=== PATIENT | female | born 1995 | race Caucasian/White ===

== ENCOUNTER → 2021-11-17 | Outpatient (CLI) | payer BC ==
--- NOTE | 2021-11-17 14:40 | Diagnostic Imaging Report ---
INDICATION: survey. TECHNIQUE: Multiple real-time grayscale images were obtained over the gravid uterus. COMPARISON: None. FINDINGS: There are no prior studies available for comparison. There is a single live fetus in viable presentation. heart motion was noted, and a rate of 146 BPM was recorded. There were no abnormalities identified. The growth parameters are fairly uniform. The placenta is anterior, and there is no previa. The amniotic fluid volume is within normal limits. The cervix was identified and measures 6.1 cm in length. Biometrical measurements are as follows: Biparietal 4.66 cm, age 20 weeks 1 days. Head circumference 17.79 cm, age 20 weeks 1 days. Abdominal circumference 15.21 cm, age 20 weeks 3 days. Femur length 3.19 cm, age 20 weeks 0 days. Sonographic estimate age: 20 weeks 2 days. Sonographic estimated date of delivery: 04/04/2022. Estimated Weight: 338 gm (+/- 50 gm). LMP percentile: 57%. heart rate: 146 beats per minute. number: 1 of 1. IMPRESSION: 1. There is a single live fetus of approximately 20 weeks 2 days gestation, +/- 1.5 weeks. The EDC is 04/04/2022. 2. There were no abnormalities identified. 3. The growth parameters are fairly uniform. Dictated by: Dictated on workstation # [id number]
== END ==
LOC: RAD 11:57
PROVIDERS: ATTEND Obstetrics & Gynecology
DX: Z34.02 Encounter for supervision of normal first pregnancy, second trimester (principal)
CPT/HCPCS: 76805

== ENCOUNTER 2022-03-23 22:54 | Inpatient (IN) | payer BC ==
[~2022-03-23] VITALS: Ht 165.1 cm; Wt 85.1 kg
[2022-03-23 23:14] VITALS: BP 143/91
[2022-03-23 23:39] VITALS: BP 122/72
[2022-03-23] MEDS ORDERED: PNV11TAB5 PO (23:46)
[2022-03-23] MEDS ORDERED: IRON18TA PO (23:48)
[2022-03-23] MEDS ORDERED: FAMO-119 PO (23:48)
[2022-03-23] MEDS ORDERED: DOCU100T7 PO (23:48)
[2022-03-23 23:54] VITALS: BP 132/74
[2022-03-24] VITALS (44 sets, daily range): BP systolic 112–152; BP diastolic 65–97
[2022-03-24 01:49] LABS: BILIRUBIN,URINE NEGATIVE (NEGATIVE); CLARITY,URINE CLEAR; COLOR,URINE YELLOW; GLUCOSE, URINE (UA) NEGATIVE (NEGATIVE); KETONES,URINE NEGATIVE (NEGATIVE); LEUKOCYTE ESTERASE ,URINE 2+ (NEGATIVE); NITRITE,URINE NEGATIVE (NEGATIVE); PROTEIN,URINE NEGATIVE (NEGATIVE)
[2022-03-24 02:03] LABS: BACTERIA,URINE MODERATE /HPF
--- NOTE | 2022-03-24 05:39 | History & Physical-OB ---
OB - Chief Complaint & HPI Date/Time Date of Admission: Date of Admission: Mar 24, 2022 at 00:37 Date seen by a Provider: Mar 24, 2022 Time Seen by a Provider: 05:45 Chief Complaint/History OB-Reason for Admission/Chief: Obstetrical Complication Hx : 4 Hx Para: 2 Expected Date of Delivery: Apr 06, 2022 Gestational Age in Weeks: 38 Gestational Age in Days: 1 Other reason for admission: Patient came in last night for contractions and had made change from office exam. However, BP in office was slightly elevated and patient had been c/o BOOTHE for the past 2 days. Upon arrival here, BP has been labile and monitored overnight with occasional elevated BP. Due to GHTN and concerns for underlying PreE with BOOTHE features patient kept for augmentation of labor at 38 weeks. Admission Nurse Assessment Rev: Yes Allergies and Home Medications Allergies Coded Allergies: No Known Drug Allergies (Unverified , 03/23/22) Patient Home Medication List Home Medication List Reviewed: Yes Docusate Sodium (Stool Softener) Unknown Strength Tablet, Unknown Dose PO DAILY, (Reported) Entered as Reported by: JOSEFINA MACIAS on 03/23/222347 Last Action: New Order Famotidine (Pepcid) Unknown Strength Tablet, Unknown Dose PO DAILY, (Reported) Entered as Reported by: JOSEFINA MACIAS on 03/23/222347 Last Action: New Order Iron (Iron) 18 Mg Tablet, 18 MG PO DAILY, (Reported) Entered as Reported by: JOSEFINA MACIAS on 03/23/222347 Last Action: New Order Qdf195/FA/Omega3/Dha/Fish Oil ( Gummies) 400 Mcg-32.5 Mg (25 Mg-7.5 Mg) Tab.chew, 1 EACH PO DAILY, (Reported) Entered as Reported by: JOSEFINA MACIAS on 03/23/222345 Last Action: New Order OB - History Hx of Present Care: Yes Ultrasounds: Normal mid trimester US Obstetrical Complications: Gestational Hypertension Medical Complications: None Obstetrical History Hx : 3 Hx Para: 2 Hx Total # of Abortions (Spona: 0 Patient Past Medical History n/a Social History/Family History Alcohol Use: Denies Use Recreational Drug Use: No 2nd Hand Smoke Exposure: No OB - Admission Exam Physical Exam Vitals: Vital Signs 03/24/22 04:45 Pulse 79 B/P (MAP) 125/78 (94) HEENT: NCAT Heart: Rhythm Normal Lungs: Clear Abdomen: Gravid Extremities: Normal Reflexes: Normal Cervical Dilatation: 4cm Effacement: 75% Station: -1 Membranes: Intact Heart Rate: 130's Accelerations: Accelerations Present Decelerations: No Decelerations Short Term Variability: Present Snf Variability: Average (6-25) Contractions on Admission: 6-10 Minutes Apart Intensity: Mild Labs Laboratory Tests Test 03/23/22 23:15 Range/Units Urine Color YELLOW Urine Clarity CLEAR Urine pH 7.0 5-9 Urine Specific [place] 1.015 L 1.016-1.022 Urine Protein NEGATIVE NEGATIVE Urine Glucose (UA) NEGATIVE NEGATIVE Urine Ketones NEGATIVE NEGATIVE Urine Nitrite NEGATIVE NEGATIVE Urine Bilirubin NEGATIVE NEGATIVE Urine Urobilinogen 0.2 < = 1.0 MG/DL Urine Leukocyte Esterase 2+ H NEGATIVE Urine RBC (Auto) NEGATIVE NEGATIVE Urine RBC NONE /HPF Urine WBC 10-25 H /HPF Urine Squamous Epithelial Cells 5-10 /HPF Urine Crystals NONE /LPF Urine Bacteria MODERATE H /HPF Urine Casts NONE /LPF Urine Mucus NEGATIVE /LPF Urine Culture Indicated YES OB - Assessment/Plan/Diagnosis Assessment Admission Dx 26 yo @ 38.1 Active labor GHTN GBS neg Admission Status: Inpatient Order (span 2 midnights) Reason for Inpatient Admission: 38 week labor Plan Plan: Other (Augmentation of labor) Induction Method: SARY WAY DO Mar 24, 2022 05:39
[2022-03-24] MEDS ORDERED: D5 LR IV SOLUTION 1,000 ML IV ONE (05:45)
[2022-03-24 06:13] LABS: BASOPHILS # (AUTO) 0.1 10^3/uL (0.0-0.1); BASOPHILS % (AUTO) 1 % (0-10); EOSINOPHILS # (AUTO) 0.1 10^3/uL (0.0-0.3); EOSINOPHILS % (AUTO) 1 % (0-10); HEMATOCRIT 35 % (35-52); HEMOGLOBIN 12.2 g/dL (11.5-16.0); LYMPHOCYTES # (AUTO) 1.8 10^3/uL (1.0-4.0); LYMPHOCYTES % (AUTO) 17 % (12-44); MEAN CORPUSCULAR HEMOGLOBIN 30 pg (25-34); MEAN CORPUSCULAR HGB CONC 35 g/dL (32-36); MEAN CORPUSCULAR VOLUME 86 fL (80-99); MEAN PLATELET VOLUME 11.2 fL (9.0-12.2); MONOCYTES # (AUTO) 1.2 10^3/uL (0.0-1.0); MONOCYTES % (AUTO) 11 % (0-12); NEUTROPHILS # (AUTO) 7.6 10^3/uL (1.8-7.8); NEUTROPHILS % (AUTO) 70 % (42-75); PLATELET COUNT 227 10^3/uL (130-400); WHITE BLOOD COUNT 10.9 10^3/uL (4.3-11.0)
[2022-03-24] MEDS ORDERED: D5 LR IV SOLUTION 1,000 ML IV SCH (06:15)
[2022-03-24] MEDS ORDERED: fentaNYL 2 mcg/ml BUPIVA 0.125 100 ML ONE (08:06)
[2022-03-24] MEDS ORDERED: fentaNYL INJ 100 MCG/2 ML AMP ONE (09:14)
[2022-03-24] MEDS ORDERED: BUPIVACAINE 0.25% 30 ML (SENSORCAINE) VIAL ONE (09:14)
[2022-03-24] MEDS ORDERED: OXYTOCIN PRE-MIX DRIP 500 ML IV SCH (10:30)
[2022-03-24] MEDS ORDERED: OXYTOCIN PRE-MIX DRIP 500 ML IV ONE (10:45)
[2022-03-24] MEDS ORDERED: LACTATED RINGERS 1,000 ML IV ONE (11:00)
[2022-03-24] MEDS ORDERED: fentaNYL 2 mcg/ml BUPIVA 0.125 100 ML IV SCH (11:00)
[2022-03-24] MEDS ORDERED: ONDANSETRON 4 MG/2 ML (SDV) Z0FRAN IV PRN (11:00)
[2022-03-24] MEDS ORDERED: NALOXONE 0.4 MG/ML 1 ML (NARCAN) VIAL IV PRN ×2 (11:00→13:45)
[2022-03-24] MEDS ORDERED: diphenhydrAMINE 50 MG/ML INJ (BENADRYL) IV PRN (11:00)
[2022-03-24] MEDS ORDERED: CATHETER FLUSH 10 ML SYR IV PRN (11:00)
[2022-03-24] MEDS: OXYTOCIN PRE-MIX DRIP 500 ML IV SCH ×2 (13:15→14:02)
[2022-03-24] MEDS ORDERED: WITCH HAZEL(TUCKS) 40 EA JAR TOP PRN (13:45)
[2022-03-24] MEDS ORDERED: MEASLES,MUMPS,RUBELLA 1 EA INJ SQ ONE (13:45)
[2022-03-24] MEDS ORDERED: TETANUS,DIPTH,PERTUSS P/F (BOOSTRIX) 0.5 ML VIAL IM ONE (13:45)
[2022-03-24] MEDS ORDERED: HYDROcodone/APAP 5 MG/325 MG (LORTAB) TAB PO PRN (13:45)
[2022-03-24] MEDS ORDERED: DIBUCAINE 1% OINTMENT 30 GM TUBE TOP PRN (13:45)
[2022-03-24] MEDS ORDERED: BENZOCAINE/MENTHOL (DERMOPLAST) 56 ML CAN TP PRN (13:45)
--- NOTE | 2022-03-24 13:51 | OB Labor & Delivery Record ---
L&D History Date of Service Date of Service: Mar 24, 2022 History Expected Date of Delivery: Apr 06, 2022 Gestational Age in Weeks: 38 Hx : 4 Hx Para: 2 Complications Events: Induced HTN, Routine care Operative Indications (Cesarea: N/A-Vaginal Delivery Intrapartal Events: None L&D Stage1 Stage One Onset of Labor - Date: Mar 24, 2022 Monitors and Tracing Monitor Mode: External Heart Rate: 125 Monitor Decelerations: None Station: 0 Vital Signs VS - Last 72 Hours, by Label 03/23/22 03/23/22 03/23/22 03/23/22 23:14 23:14 23:14 23:39 Temp 37.0 36.7 Pulse 89 89 89 79 Resp 18 18 B/P (MAP) 143/91 (108) 122/72 (89) Pulse Ox 97 97 97 O2 Delivery Room Air Room Air Room Air 03/23/22 03/24/22 03/24/22 03/24/22 23:54 01:15 02:15 03:15 Pulse 78 69 64 69 B/P (MAP) 132/74 (93) 128/74 (92) 120/73 (89) 132/84 (100) 03/24/22 03/24/22 03/24/22 03/24/22 04:45 07:30 07:38 08:00 Temp 36.3 36.7 Pulse 79 79 77 Resp 18 18 B/P (MAP) 125/78 (94) 130/80 (97) Pulse Ox 97 O2 Delivery Room Air Room Air 03/24/22 03/24/22 03/24/22 03/24/22 08:15 08:30 08:50 09:00 Pulse 62 75 Resp 18 18 18 18 B/P (MAP) 133/87 (102) 128/89 (102) O2 Delivery Room Air Room Air Room Air Room Air 03/24/22 03/24/22 03/24/22 03/24/22 09:15 09:21 09:26 09:30 Pulse 92 72 76 76 Resp 18 18 18 18 B/P (MAP) 133/91 (105) 131/90 (104) 152/93 (112) 137/92 (107) Pulse Ox 100 100 99 O2 Delivery Room Air Room Air Room Air Room Air 03/24/22 03/24/22 03/24/22 03/24/22 09:35 09:40 09:45 09:50 Pulse 88 71 63 72 Resp 18 18 18 18 B/P (MAP) 133/86 (102) 113/66 (82) 119/72 (88) 119/72 (88) Pulse Ox 96 98 98 99 O2 Delivery Room Air Room Air Room Air Room Air 03/24/22 03/24/22 03/24/22 03/24/22 09:55 10:00 10:05 10:15 Pulse 75 71 79 80 Resp 18 18 18 18 B/P (MAP) 119/77 (91) 121/74 (90) 122/78 (93) 128/77 (94) Pulse Ox 99 100 100 100 O2 Delivery Room Air Room Air Room Air Room Air 03/24/22 03/24/22 03/24/22 03/24/22 10:30 10:45 11:00 11:15 Pulse 67 71 72 67 Resp 18 18 18 18 B/P (MAP) 127/73 (91) 125/82 (96) 126/76 (93) 133/87 (102) Pulse Ox 100 100 100 100 O2 Delivery Room Air Room Air Room Air Room Air 03/24/22 03/24/22 03/24/22 11:30 11:45 12:00 Pulse 63 74 75 Resp 18 18 18 B/P (MAP) 128/78 (95) 132/84 (100) 136/84 (101) Pulse Ox 100 100 100 O2 Delivery Room Air Room Air Room Air Rupture of Membranes Spontaneous Ruture of Membrane: No Amniotic Membrane Rupture Time: 0554 Amniotic Membrane Fluid Desc.: Clear Vaginal Bleeding Description: Normal Show Induction/Anesthesia Epidural Cath Placement - Time: 09 Progress/Notes Patient came in for contractions making change from office exam earlier that day. Her BP was labile and decision was made to augment labor with AROM due to GHTN. AROM performed, followed by Pitocin augmentation and epidural placement. She progressed to complete and 0 station on max 4 mu pitocin. L&D Stage2 Stage Two Stage II Date: Mar 24, 2022 Monitors and Tracing Monitor Mode: External Heart Rate: 125 Monitor Accelerations: Uniform Monitor Decelerations: None Wood Flooring Specialist Variability: Average (6-10) Short Term Variability: Present Position: Right Occiput Anterior Presentation: Vertex Cord Descript/Complications Cord Vessel Description: 3 Vessels Complications nuchal cord reduced x 1 Delivery Type Infant Delivery Method: Spontaneous Vaginal Anterior Shoulder: Left Episiotomy/Perineal Laceration Laceraction(s)/Extensions: No Condition of Delivery 1 minute Comment: 8 5 minute Comment: 9 Notes live male infant weight pending. Condition of Condition of Infant: Living Exam: No Observed Abnormalities Resuscitation Resuscitation: N/A - Spontaneous Resp L&D Stage3 Stage Three Stage III Date: Mar 24, 2022 Pictocin Pitocin Administration mu/min: 4 Pitocin ml/hr: 4 Pitocin Administration Comment: pitocin increased wide open after delivery of placetna Placenta Delivery Placenta Delivery: Spontaneous Delivery Summary Summary Estimated blood loss (mL): 250 Attending at delivery: Sary Melgoza DO Condition of Delivery Examined: Cervix Examined, Uterus Explored Post Hemorrhage: No Condition of Mother stable Condition of Infant (s) stable SARY MELGOZA DO Mar 24, 2022 1:51 pm
[2022-03-24] MEDS ORDERED: CATHETER FLUSH 10 ML SYR IV SCH ×2 (14:00)
[2022-03-24] MEDS: IBUPROFEN 600 MG (MOTRIN) TAB PO SCH ×2 (16:18→22:22)
[2022-03-24] MEDS: DOCUSATE SODIUM 100 MG (COLACE) CAP PO SCH (22:22)
[2022-03-25] MEDS ORDERED: OXYTOCIN PRE-MIX DRIP 1,000 ML IV ONE (02:26)
[2022-03-25] MEDS ORDERED: NS IV 1000 ML 2,000 ML ONE (02:26)
[2022-03-25 05:27] VITALS: BP 131/83
[2022-03-25 05:38] LABS: BASOPHILS % (AUTO) 0 % (0-10); EOSINOPHILS # (AUTO) 0.1 10^3/uL (0.0-0.3); EOSINOPHILS % (AUTO) 1 % (0-10); HEMATOCRIT 32 % (35-52); HEMOGLOBIN 10.6 g/dL (11.5-16.0); LYMPHOCYTES # (AUTO) 2.3 10^3/uL (1.0-4.0); LYMPHOCYTES % (AUTO) 17 % (12-44); MEAN CORPUSCULAR HEMOGLOBIN 30 pg (25-34); MEAN CORPUSCULAR HGB CONC 34 g/dL (32-36); MEAN CORPUSCULAR VOLUME 89 fL (80-99); MEAN PLATELET VOLUME 11.1 fL (9.0-12.2); MONOCYTES # (AUTO) 1.2 10^3/uL (0.0-1.0); MONOCYTES % (AUTO) 9 % (0-12); NEUTROPHILS # (AUTO) 9.7 10^3/uL (1.8-7.8); NEUTROPHILS % (AUTO) 72 % (42-75); PLATELET COUNT 193 10^3/uL (130-400); WHITE BLOOD COUNT 13.5 10^3/uL (4.3-11.0)
[2022-03-25] MEDS ORDERED: PRENATAL VITAMIN 1 EA TAB PO SCH (07:00)
--- NOTE | 2022-03-25 07:22 | Anesthesia-Regional Post-Op ---
Regional Patient Condition Mental Status: Alert, Oriented x3 Circulation: Same as Pre-Op Headache: Absent Sensation: Full Recovery Motor Block: Absent Post Op Complications Complications None Follow Up Care/Instructions Patient Instructions None needed. Anesthesia/Patient Condition Patient is doing well, no complaints, stable vital signs, no apparent adverse anesthesia problems. No complications reported per nursing. D/C home per [facility] Criteria: Yes GISELA SPARKS CRNA Mar 25, 2022 07:22
[2022-03-25] MEDS: IBUPROFEN 600 MG (MOTRIN) TAB PO SCH ×3 (08:10→14:19)
[2022-03-25] MEDS ORDERED: FERROUS SULF 325 MG (IRON) TAB PO SCH (09:00)
[2022-03-25] MEDS: DOCUSATE SODIUM 100 MG (COLACE) CAP PO SCH (09:00)
[2022-03-25 09:03] VITALS: BP 143/95
--- NOTE | 2022-03-25 09:39 | Postpartum Progress Note ---
Note Note Day # 1 Subjective: Patient is without complaints. Ambulating, voiding. Tolerating a regular diet without nausea or vomiting. Normal lochia. Pain is well controlled with oral pain medications. Objective: Physical Exam: General - Alert and oriented, no apparent distress Abdomen - Soft, appropriately tender to palpation, non-distended, fundus firm at umbilicus Extremities - no edema, negative Meaghan's bilaterally Assessment: PPD 1 NVD Acute blood loss anemia Plan: Routine care. Encourage breast feeding. Encourage ambulation. Ferrous sulfate supplementation. Plan for discharge today Vitals - Labs Vital Signs - I&O Vital Signs Date Time Temp Pulse Resp B/P (MAP) Pulse Ox O2 Delivery O2 Flow Rate FiO2 03/25/22 09:03 36.2 84 18 143/95 (111) 97 Room Air 03/25/22 05:27 36.6 72 18 131/83 (99) 99 Room Air 03/24/22 23:02 36.8 60 18 134/90 (105) 99 Room Air 03/24/22 16:15 72 18 130/83 (99) Room Air 03/24/22 16:00 73 18 123/71 (88) Room Air 03/24/22 15:45 70 18 115/65 (82) Room Air 03/24/22 15:30 72 18 124/77 (93) Room Air 03/24/22 15:15 78 18 122/80 (94) Room Air 03/24/22 15:00 70 18 114/69 (84) Room Air 03/24/22 14:45 62 18 112/71 (85) Room Air 03/24/22 14:30 64 18 119/75 (90) Room Air 03/24/22 14:15 36.9 62 18 118/76 (90) Room Air 03/24/22 14:00 62 18 124/76 (92) Room Air 03/24/22 13:45 74 18 119/78 (92) Room Air 03/24/22 13:30 86 18 129/97 (108) Room Air 03/24/22 13:00 85 18 133/90 (104) 100 Room Air 03/24/22 12:45 68 18 130/83 (99) 100 Room Air 03/24/22 12:30 75 18 125/79 (94) 99 Room Air 03/24/22 12:15 71 18 133/85 (101) 100 Room Air 03/24/22 12:00 75 18 136/84 (101) 100 Room Air 03/24/22 11:45 74 18 132/84 (100) 100 Room Air 03/24/22 11:30 63 18 128/78 (95) 100 Room Air 03/24/22 11:15 67 18 133/87 (102) 100 Room Air 03/24/22 11:00 72 18 126/76 (93) 100 Room Air 03/24/22 10:45 71 18 125/82 (96) 100 Room Air 03/24/22 10:30 67 18 127/73 (91) 100 Room Air 03/24/22 10:15 80 18 128/77 (94) 100 Room Air 03/24/22 10:05 79 18 122/78 (93) 100 Room Air 03/24/22 10:00 71 18 121/74 (90) 100 Room Air 03/24/22 09:55 75 18 119/77 (91) 99 Room Air 03/24/22 09:50 72 18 119/72 (88) 99 Room Air 03/24/22 09:45 63 18 119/72 (88) 98 Room Air 03/24/22 09:40 71 18 113/66 (82) 98 Room Air I & O 03/25/22 07:00 Intake Total 2000 ml Balance 2000 ml Labs Laboratory Tests 03/25/22 05:13: White Blood Count 13.5H, Red Blood Count 3.54L, Hemoglobin 10.6L, Hematocrit 32L , Mean Corpuscular Volume 89, Mean Corpuscular Hemoglobin 30, Mean Corpuscular Hemoglobin Concent 34, Red Cell Distribution Width 15.1H, Platelet Count 193, Mean Platelet Volume 11.1, Immature Granulocyte % (Auto) 1, Neutrophils (%) (Auto) 72, Lymphocytes (%) (Auto) 17, Monocytes (%) (Auto) 9, Eosinophils (%) (Auto) 1, Basophils (%) (Auto) 0, Neutrophils # (Auto) 9.7H, Lymphocytes # (Auto) 2.3, Monocytes # (Auto) 1.2H, Eosinophils # (Auto) 0.1, Basophils # (Auto) 0.0, Immature Granulocyte # (Auto) 0.1 SARY MELGOZA DO Mar 25, 2022 9:39 am
[2022-03-25] MEDS ORDERED: DOCU100C37 PO (09:40)
[2022-03-25] MEDS ORDERED: IBUP-844 PO (09:40)
--- NOTE | 2022-03-25 09:40 | Discharge Inst-Women's Service ---
Discharge Inst-Women's Serv Depart Medication/Instructions New, Converted or Re-Newed RX: Transmitted to Pharmacy Final Diagnosis PPD 1 NVD Problems Reviewed?: Yes Consults/Follow Up Additional Follow Up: Yes Orders/Referrals Dr. Melgoza in 6 weeks Activity Activity: Activity as Tolerated Driving Instructions: No Driving for 1 Week NO SMOKING: NO SMOKING Nothing Inside Vagina: No Douching, No [place], No Tampons Diet Discharge Diet: No Restrictions Symptoms to Report to : Bleeding Excessive, Pain Increased, Fever Over 101 Degrees F, Vaginal Bleeding Increase, Questions/Concerns For Any Problems or Questions: Contact Your Physician SARY MELGOZA DO Mar 25, 2022 9:40 am
[2022-03-25 12:11] VITALS: BP 139/76
[2022-03-25 14:21] VITALS: BP 131/84
== END 2022-03-25 17:15 | disposition home or self-care (01) | DRG 806 ==
LOC: LDRP 22:54 → WSo 22:54 → LDRP 03-24 00:37 → WSo 03-24 00:37 → OBSVTOIN 03-24 06:04 → LDRP 03-24 16:45
PROVIDERS: ADMIT Obstetrics & Gynecology; ATTEND Obstetrics & Gynecology
PROC: 10E0XZZ Delivery of Products of Conception, External Approach (ICD-10-PCS; principal; 2022-03-24)
DX: O13.4 Gestational [pregnancy-induced] hypertension without significant proteinuria, complicating childbirth (principal); D62 Acute posthemorrhagic anemia; Z37.0 Single live birth; Z3A.38 38 weeks gestation of pregnancy; O69.81X0 Labor and delivery complicated by cord around neck, without compression, not applicable or unspecified; O90.81 Anemia of the puerperium
CPT/HCPCS: 36415; 81000; 85025; 86850; 86900; 86901; 87088; 99212